=== PATIENT | male | born 1960 | race Two or more races ===

== ENCOUNTER 2018-09-17 11:51 | Emergency (ER) | payer OTHER ==
--- NOTE | 2018-09-17 12:10 | ER Document Report ---
ED Medical Screen (RME) - General Chief Complaint: S/S of Possible Stroke Stated Complaint: WEAKNESS Time Seen by Provider: 09/17/18 12:06 Mode of Arrival: Ambulatory Information source: Patient Notes: Patient presents emergency department that at approximately 10:00 AM this morning the patient began feeling like he was dizzy and anxious. Reported that he felt his left arm felt some electrical pulse and his chest was little tight. 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 Patient was working outside when he was walking to take a break. Patient is Maori- speaking. Coworker at his side reports he drank some Gatorade and ate a Snickers at around 1115. Stroke protocol initiated at [facility]. Patient is alert and oriented and answering all questions appropriately through his coworker. Adore chavarria I have greeted and performed a rapid initial assessment of this patient. A c omprehensive ED assessment and evaluation of the patient, analysis of test results and completion of the medical decision making process will be conducted by additional ED providers. Dictation of this chart was performed using voice recognition software; therefore, there may be some unintended grammatical errors. TRAVEL OUTSIDE OF THE [place] IN LAST 30 DAYS: No - Related Data Allergies/Adverse Reactions: No Known Allergies Allergy (Unverified 09/17/18 11:54) Physical Exam - Vital signs Vitals: Pulse Resp BP Pulse Ox 86 18 155/102 H 99 09/17/18 12:27 09/17/18 12:27 09/17/18 12:27 09/17/18 12:27 Course - Vital Signs Vital signs: Temp Pulse Resp BP Pulse Ox 85 18 139/94 H 98 09/17/18 15:15 09/17/18 16:52 09/17/18 16:52 09/17/18 16:52 - Laboratory Result Diagrams: 09/17/18 12:09 09/17/18 12:09 Laboratory results interpreted by me: 09/17/18 12:09 Sodium 136.6 L Chloride 97 L Glucose 439 H* Total Bilirubin 1.4 H Doctor's Discharge - Discharge Clinical Impression: TIA (transient ischemic attack), Hyperglycemia Condition: Stable Disposition: HOME, SELF-CARE Additional Instructions: Transient Ischemic Attack You have been diagnosed as having a transient ischemic attack (TIA). This is caused when an artery to the brain has been temporarily blocked. It can result in visual changes, difficulty with speech, and weakness or numbness -- usually limited to one side of the body. TIA symptoms usually resolve within an hour, but a TIA is serious, as it may be a warning sign of an impending stroke. To prevent further episodes, you may be placed on medication to reduce the possibility that your platelets will aggregate and form blood clots in the arteries that supply the brain. Usually, this includes aspirin and sometimes other platelet inhibitors. Further evaluation is often necessary to make an exact diagnosis as to where these blood clots are originating, and if anything else needs to be done to correct the problem. Call the physician or go to the emergency room if episodes occur with increasing frequency. If symptoms occur that don't go away within a few minutes, call 911. Aspirin Aspirin has been shown to have a beneficial effect on blood circulation by reducing the clotting effect of platelets in the blood. These beneficial effects can be achieved by taking just a single baby (62.5 mg) aspirin a day. It is recommended that any person over the age of forty take a single baby aspirin every day for heart and brain circulation, unless you are allergic to aspirin or have some significant bleeding disorder. It is strongly recommended that people who have proven cardiac or blood circulation disturbances should take a baby aspirin every day. HYPERGLYCEMIA (HIGH BLOOD SUGAR): You have an abnormally high blood sugar. Not all high blood sugar requires long-term treatment. High blood sugar can be due to medications, , or the stress of illness. (These cases are "borderline diabetes.") If the doctor feels your high blood sugar might resolve with time, you may not require treatment now. It's very important that you follow through, to see if the blood sugar returns to normal levels. Uncontrolled high blood sugar leads to early heart disease, strokes, nerve damage, eye damage, and kidney damage. Call the physician if there is faintness, excess sleepiness, or very rapid breathing. NORMAL EXAM AND WORKUP: At this time, except for your elevated blood sugar, your examination and workup show no significant abnormality. No significant abnormal physical findings were noted. All laboratory, EKG, and imaging (x-ray, CT scans, ultrasound) studies that were ordered show no significant abnormality. Although your examination and all studies that were ordered showed no significant abnormal finding, there are no examinations and no studies that are 100% accurate. There is always the possibility that some abnormality could exist and not be detected with physical examination or within the limits and capabilities of laboratory and other studies. You should return or follow up as you were instructed on your visit today for further evaluation if your symptoms do not resolve. DIABETES: You have an abnormally high blood sugar, suspicious for diabetes. Not all high blood sugar requires long-term treatment. High blood sugar can be due to medications, , or the stress of illness. (These cases are "borderline diabetes.") If the doctor feels your high blood sugar might get better with time, you may not require treatment now. It's very important that you follow through. Uncontrolled high blood sugar leads to early heart disease, strokes, nerve damage, eye damage, and kidney damage. All diabetics should follow a diet designed to control the blood sugar. Overweight diabetics should exercise regularly and lose weight. If this is not sufficient to control the blood sugar, pills or insulin shots are necessary. Younger people who develop diabetes almost always require insulin daily. Home testing of blood sugars or urine sugar is required. Diabetic teaching is available to help you figure insulin doses and monitor the blood sugar. Call the physician if there is faintness, excess sleepiness, or very rapid breathing. If hypoglycemia (LOW blood sugar) develops, symptoms are shakiness, weakness, sweating, and confusion. In this case, you should eat or drink something with sugar at once. Glucophage (Metformin hydrochloride) Glucophage is used to treat diabetes. It helps insulin move sugar from your blood stream into your cells. It also slows production of new blood sugar. Glucophage can be combined with another type of diabetes pill or with insulin injections. Glucophage should NOT be used by patients, true insulin-dependent (juvenile) diabetics, or those prone to acidosis (severe kidney disease, alcoholism, severe heart failure). You MUST NOT receive iodine-containing x-ray dye while taking Glucophage. The medicine must be stopped 2 days before the test. Be certain your doctor is aware you are taking Glucophage before undergoing IVP, angiograms, or other x- rays that require IV injection of dye. Glucophage commonly causes decreased appetite. Some patients may have nausea, vomiting, or diarrhea. If the side effects are severe, call your doctor. Glucophage will not cause hypoglycemia (low blood sugar) when used alone. Some patients using diabetes pills or insulin may experience symptoms of hypoglycemia (flushing, sweats, racing heart, lightheadedness). Eat or drink something sweet. Contact your doctor for further instructions. You may need to reduce the dose of insulin or of the other diabetes pill. FOLLOW-UP CARE: If you have been referred to a physician for follow-up care, call the physicians office for an appointment as you were instructed or within the next two days. If you experience worsening or a significant change in your symptoms, notify the physician immediately or return to the Emergency Department at any time for re-evaluation. You should see a primary care physician in the next 5 to 7 days to recheck your blood sugar and determine if you need to increase her dosage or increase your type of pills to control your blood sugar properly. Prescriptions: Metformin HCl [Glucophage 500 mg Tablet] 500 mg PO BID #20 tablet
--- NOTE | 2018-09-17 12:25 | RADIOLOGY REPORT (SQ) ---
EXAM DESCRIPTION: CHEST SINGLE VIEW COMPLETED DATE/TIME: 09/17/2018 12:12 pm REASON FOR STUDY: bed 18 cp COMPARISON: None. EXAM PARAMETERS: NUMBER OF VIEWS: One view. TECHNIQUE: Single frontal radiographic view of the chest acquired. RADIATION DOSE: NA LIMITATIONS: None. FINDINGS: LUNGS AND PLEURA: No opacities, masses or pneumothorax. No pleural effusion. MEDIASTINUM AND HILAR STRUCTURES: No masses. Contour normal. HEART AND VASCULAR STRUCTURES: Heart normal in size. Normal vasculature. BONES: No acute findings. HARDWARE: None in the chest. OTHER: No other significant finding. IMPRESSION: NO ACUTE RADIOGRAPHIC FINDING IN THE CHEST. TECHNICAL DOCUMENTATION: JOB ID: [id number] [employer]- All Rights Reserved Reading location - IP/workstation name: [email or web address]
[2018-09-17 12:26] LABS: ABSOLUTE EOSINOPHILS # (AUTO) 0.1 10^3/uL (0.0-0.6); ABSOLUTE LYMPHOCYTES (AUTO) 0.9 10^3/uL (0.5-4.7); ABSOLUTE MONOCYTES (AUTO) 0.4 10^3/uL (0.1-1.4); ABSOLUTE NEUT (AUTO) 3.2 10^3/uL (1.7-8.2); BASOPHILS % (AUTO) 0.6 % (0-2); EOSINOPHILS % (AUTO) 2.6 % (0-6); HEMATOCRIT 45.4 % (37.9-51.0); HEMOGLOBIN 15.2 g/dL (13.5-17.0); LYMPHOCYTES % (AUTO) 20.2 % (13-45); MEAN CORPUSCULAR HEMOGLOBIN 32.1 pg (27.0-33.4); MEAN CORPUSCULAR HGB CONC 33.3 g/dL (32.0-36.0); MEAN CORPUSCULAR VOLUME 96 fl (80-97); MONOCYTES % (AUTO) 8.6 % (3-13); PLATELET COUNT 155 10^3/uL (150-450); RED BLOOD COUNT 4.71 10^6/uL (4.35-5.55); TOTAL CELLS COUNTED % (AUTO) 100 %; WHITE BLOOD COUNT 4.7 10^3/uL (4.0-10.5)
--- NOTE | 2018-09-17 12:28 | RADIOLOGY REPORT (SQ) ---
EXAM DESCRIPTION: CT HEAD WITHOUT COMPLETED DATE/TIME: 09/17/2018 12:02 pm REASON FOR STUDY: left sided weakness COMPARISON: None. TECHNIQUE: Axial images acquired through the brain without intravenous contrast. Images reviewed wi th bone, brain and subdural windows. Additional sagittal and coronal reconstructions were generated. Images stored on PACS. All CT scanners at this facility use dose modulation, iterative reconstruction, and/or weight based d osing when appropriate to reduce radiation dose to as low as reasonably achievable (ALARA). [facility]: Dose Right [facility]: CareDose [facility]: Dose Right [facility]: Teradose 4D [facility]: [employer] RADIATION DOSE: mGy. LIMITATIONS: None. FINDINGS: VENTRICLES: Normal size and contour. CEREBRUM: No masses. No hemorrhage. No midline shift. No evidence for acute infarction. Normal gra y/white matter differentiation. No areas of low density in the white matter. CEREBELLUM: No masses. No hemorrhage. No alteration of density. No evidence for acute infarction. EXTRAAXIAL SPACES: No fluid collections. No masses. ORBITS AND GLOBE: No intra- or extraconal masses. Normal contour of globe without masses. CALVARIUM: No fracture. PARANASAL SINUSES: No fluid or mucosal thickening. SOFT TISSUES: No mass or hematoma. OTHER: No other significant finding. IMPRESSION: NORMAL BRAIN CT WITHOUT CONTRAST. EVIDENCE OF ACUTE STROKE: NO. COMMENT: Quality ID # [id number]: Final reports with documentation of one or more dose reduction techniques (e.g., Automated exposure control, adjustment of the mA and/or kV according to patient size, use of iterative reconstruction technique) TECHNICAL DOCUMENTATION: JOB ID: [id number] [employer]- All Rights Reserved Reading location - IP/workstation name: [email or web address]
[2018-09-17 12:45] LABS: ALANINE AMINOTRANSFERASE 24 U/L (21-72); ALBUMIN 4.2 g/dL (3.5-5.0); ALKALINE PHOSPHATASE 65 U/L (38-126); ANION GAP 12 (5-19); ASPARTATE AMINO TRANSFERASE 20 U/L (17-59); BILIRUBIN,DIRECT 0.2 mg/dL (0.0-0.4); BILIRUBIN,TOTAL 1.4 mg/dL (0.2-1.3); BLOOD UREA NITROGEN 14 mg/dL (7-20); CALCIUM 9.5 mg/dL (8.4-10.2); CARBON DIOXIDE 28 mmol/L (22-30); CHLORIDE 97 mmol/L (98-107); CREATINE KINASE 92 U/L (55-170); SODIUM 136.6 mmol/L (137-145)
[2018-09-17 12:53] LABS: GLUCOSE 439 mg/dL (75-110)
[2018-09-17 12:57] LABS: CREATINE KINASE MB 2.93 ng/mL (<4.55)
[2018-09-17 12:58] LABS: TROPONIN I < 0.012 ng/mL
--- NOTE | 2018-09-17 15:36 | RADIOLOGY REPORT (SQ) ---
EXAM DESCRIPTION: MRI HEAD WITHOUT COMPLETED DATE/TIME: 09/17/2018 3:19 pm REASON FOR STUDY: Numbness left arm and hand and leg COMPARISON: None. TECHNIQUE: Multiplanar imaging includes non-contrasted T1, T2, FLAIR, and diffusion with ADC map seq uences. Images stored on PACS. LIMITATIONS: None. FINDINGS: ANATOMY: No anomalies. Normal vascular flow voids. Pituitary fossa normal. CSF SPACES: Normal in size and contour. No hemorrhage. CEREBRUM: Sulci and gyri normal in size and contour. Normal white matter signal on FLAIR imaging. No evidence of hemorrhage, mass, or extraaxial fluid collection. POSTERIOR FOSSA: No signal alteration. No hemorrhage. No edema, masses or mass effect. Internal kalli tory canals, cerebello-pontine angles, mastoids normal. DIFFUSION IMAGING: Negative for acute or sub-acute infarction. ORBITS: No masses. Globes normal. PARANASAL SINUSES: No fluid levels. Mucosa normal. OTHER: No other significant finding. IMPRESSION: NORMAL MRI OF THE BRAIN WITHOUT INTRAVENOUS GADOLINIUM CONTRAST. EVIDENCE OF ACUTE STROKE: NO. TECHNICAL DOCUMENTATION: JOB ID: [id number]- All Rights Reserved Reading location - IP/workstation name: [email or web address]
--- NOTE | 2018-09-17 15:41 | RADIOLOGY REPORT (SQ) ---
EXAM DESCRIPTION: MRI CERVICAL SPINE WITHOUT COMPLETED DATE/TIME: 09/17/2018 3:20 pm REASON FOR STUDY: Numbness of left arm and hand. COMPARISON: None. TECHNIQUE: Sagittal and Axial imaging includes T1, T2, STIR and gradient echo sequences. LIMITATIONS: None. FINDINGS: ALIGNMENT: Normal. VERTEBRAE: Intact. BONE MARROW: Normal. No marrow replacement or reactive changes. DISCS: Normal. No significant abnormal signal or loss of height. HARDWARE: None in the spine. CORD AND BASE OF BRAIN: Normal in size and signal intensity. SOFT TISSUES: No soft tissue masses. C1-C2: No significant spinal stenosis. C2-C3: No significant spinal stenosis or exit foraminal stenosis. C3-C4: No significant spinal stenosis or exit foraminal stenosis. C4-C5: No significant spinal stenosis or exit foraminal stenosis. C5-C6: Shallow left paracentral disc/osteophyte complex that narrows the anterior CSF space and may m inimally deform the anterior spinal cord. There is no significant foraminal stenosis. C6-C7: Shallow midline disc/ osteophyte complex that narrows the anterior CSF space but does not defo rm the spinal cord. There is no foraminal stenosis. C7-T1: No significant spinal stenosis or exit foraminal stenosis. UPPER THORACIC: Incompletely imaged. No significant spinal stenosis or exit foraminal stenosis. OTHER: No other significant finding. IMPRESSION: The study is normal except for left paracentral disc/ osteophyte complex at C5-6 as desc ribed. A minimal midline disc/ osteophyte complex at C6-7 does not appear particularly significant. TECHNICAL DOCUMENTATION: JOB ID: [id number] [employer]- All Rights Reserved Reading location - IP/workstation name: [email or web address]
[2018-09-17 16:53] VITALS: BP 139/94
--- NOTE | 2018-09-17 17:08 | ER Document Report ---
ED General - General Chief Complaint: S/S of Possible Stroke Stated Complaint: WEAKNESS Time Seen by Provider: 09/17/18 12:06 Mode of Arrival: Ambulatory Notes: Patient was at work today about 10 AM when he experienced numbness in his left arm. It include the entire arm and probably worse in the hand. 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 He did feel some tightness in the left back of his head, but no neck pains. Coworkers say that he was not able to walk on his left leg. He seemed confused and did not know where he was at that time. Where he was working was hot, although there was ample opportunity to get out of the heat and into a cooler place and patient does not think he got overheated. Patient is right-hand dominant. Patient is in good health. Does not take any prescription medications for any medical disorder. TRAVEL OUTSIDE OF THE [place] IN LAST 30 DAYS: No - Related Data Allergies/Adverse Reactions: No Known Allergies Allergy (Unverified 09/17/18 11:54) Past Medical History - General Information source: Patient - Social History Smoking Status: Unknown if Ever Smoked Family History: Reviewed & Not Pertinent, DM Patient has suicidal ideation: No Patient has homicidal ideation: No - Past Medical History Cardiac Medical History: Denies: Hx Atrial Fibrillation, Hx Coronary Artery Disease, Hx Hypercholesterolemia, Hx Hypertension Neurological Medical History: Denies: Hx Cerebrovascular Accident, Hx Seizures Endocrine Medical History: Denies: Hx Diabetes Mellitus Type 1, Hx Diabetes Mellitus Type 2 Review of Systems - Review of Systems Notes: REVIEW OF SYSTEMS: CONSTITUTIONAL : Denies fever. EENT: Denies eye, ear, nose or mouth or throat pain or other symptoms. CARDIOVASCULAR: Denies chest pain. Does not indicate having any pain in his chest at any time. Does not point to his chest as the location of any pain. RESPIRATORY: Denies cough, chest congestion, or shortness of breath. GASTROINTESTINAL: Denies abdominal pain or nausea, vomiting, or diarrhea. GENITOURINARY: Denies difficulty or painful urinating, urinary frequency, blood in urine. MUSCULOSKELETAL: Denies back or neck pain. Denies joint pain or swelling. SKIN: Denies rash or skin lesions. NEUROLOGICAL: Denies LOC or altered mental status. See HPI. Denies headache. ALL OTHER SYSTEMS REVIEWED AND NEGATIVE. Physical Exam - Vital signs Vitals: Pulse Resp BP Pulse Ox 86 18 155/102 H 99 09/17/18 12:27 09/17/18 12:27 09/17/18 12:27 09/17/18 12:27 Interpretation: Normal Notes: PHYSICAL EXAMINATION: GENERAL: Well-appearing, in no acute distress. Vital signs are all essentially normal. HEAD: Atraumatic, normocephalic. EYES: Pupils equal round and reactive to light, extraocular movements intact. ENT: oropharynx clear without exudates. Moist mucous membranes. NECK: Normal range of motion, supple. LUNGS: Breath sounds clear and equal bilaterally. HEART: Regular rate and rhythm without murmurs. ABDOMEN: Soft, nontender. No guarding or rebound. No masses. BACK: No tenderness throughout entire back. EXTREMITIES: Normal range of motion without pain. NEUROLOGICAL: Normal speech, normal gait. Normal sensory, motor, and reflex exams. 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 Awake, alert, and oriented x3. Cranial nerves normal. No facial asymmetry. No drooping of either side. No slurring of speech. PSYCH: Normal mood, normal affect. SKIN: Warm, dry, no rashes. Course - Re-evaluation Re-evalutation: 09/17/18 19:19 Patient's symptoms gradually dissipated until he had no more symptoms. He was able to walk normally about the emergency department without any assistance. His CT scan as well as his MRI of his brain were both normal. No evidence of stroke. I am not sure what is causing patient's symptoms. I believe he probably had a TIA as that is the most consistent with the symptoms he is presented with. I do not think he has had a cardiac event. And, then, there is a questionable role that elevated blood sugar played in his symptoms. I can only say the patient is significantly improved from his presentation and without complaints at the time of his discharge. - Vital Signs Vital signs: Temp Pulse Resp BP Pulse Ox 85 18 139/94 H 98 09/17/18 15:15 09/17/18 16:52 09/17/18 16:52 09/17/18 16:52 - Laboratory Result Diagrams: 09/17/18 12:09 09/17/18 12:09 Laboratory results interpreted by me: 09/17/18 12:09 Sodium 136.6 L Chloride 97 L Glucose 439 H* Total Bilirubin 1.4 H - EKG Interpretation by Me EKG shows normal: Sinus rhythm Rate: Normal Rhythm: NSR Additional EKG results interpreted by me: 09/17/18 19:22 EKG is normal. No ST changes. No ST elevation. Discharge - Discharge Clinical Impression: TIA (transient ischemic attack), Hyperglycemia Condition: Stable Disposition: HOME, SELF-CARE Additional Instructions: Transient Ischemic Attack You have been diagnosed as having a transient ischemic attack (TIA). This is caused when an artery to the brain has been temporarily blocked. It can result in visual changes, difficulty with speech, and weakness or numbness -- usually limited to one side of the body. TIA symptoms usually resolve within an hour, but a TIA is serious, as it may be a warning sign of an impending stroke. To prevent further episodes, you may be placed on medication to reduce the possibility that your platelets will aggregate and form blood clots in the arteries that supply the brain. Usually, this includes aspirin and sometimes other platelet inhibitors. Further evaluation is often necessary to make an exact diagnosis as to where these blood clots are originating, and if anything else needs to be done to correct the problem. Call the physician or go to the emergency room if episodes occur with increasing frequency. If symptoms occur that don't go away within a few minutes, call 911. Aspirin Aspirin has been shown to have a beneficial effect on blood circulation by reducing the clotting effect of platelets in the blood. These beneficial effe cts can be achieved by taking just a single baby (62.5 mg) aspirin a day. It is recommended that any person over the age of forty take a single baby aspirin every day for heart and brain circulation, unless you are allergic to aspirin or have some significant bleeding disorder. It is strongly recommended that people who have proven cardiac or blood circulation disturbances should take a baby asp irin every day. HYPERGLYCEMIA (HIGH BLOOD SUGAR): You have an abnormally high blood sugar. Not all high blood sugar requires long-term treatment. High blood sugar can be due to medications, , or the stress of illness. (These cases are "borderline diabetes.") If the doctor feels your high blood sugar might resolve with time, you may not require treatment now. It's very important that you follow through, to see if the blood sugar returns to normal levels. Uncontrolled high blood sugar leads to early heart disease, strokes, nerve damage, eye damage, and kidney damage. Call the physician if there is faintness, excess sleepiness, or very rapid breathing. NORMAL EXAM AND WORKUP: At this time, except for your elevated blood sugar, your examination and workup show no significant abnormality. No significant abnormal physical findings were noted. All laboratory, EKG, and imaging (x-ray, CT scans, ultrasound) studies that were ordered show no significant abnormality. Although your examination and all studies that were ordered showed no signi ficant abnormal finding, there are no examinations and no studies that are 100% accurate. There is always the possibility that some abnormality could exist and not be detected with physical examination or within the limits and capabilities of laboratory and other studies. You should return or follow up as you were instructed on your visit today for further evaluation if your symptoms do not resolve. DIABETES: You have an abnormally high blood sugar, suspicious for diabetes. Not all high blood sugar requires long-term treatment. High blood sugar can be due to medications, , or the stress of illness. (These cases are "borderline diabetes.") If the doctor feels your high blood sugar might get better with time, you may not require treatment now. It's very important that you follow through. Uncontrolled high blood sugar leads to early heart disease, strokes, nerve damage, eye damage, and kidney damage. All diabetics should follow a diet designed to control the blood sugar. Overweight diabetics should exercise regularly and lose weight. If this is not sufficient to control the blood sugar, pills or insulin shots are necessary. Younger people who develop diabetes almost always require insulin daily. Home testing of blood sugars or urine sugar is required. Diabetic teaching is available to help you figure insulin doses and monitor the blood sugar. Call the physician if there is faintness, excess sleepiness, or very rapid breathing. If hypoglycemia (LOW blood sugar) develops, symptoms are shakiness, weakness, sweating, and confusion. In this case, you should eat or drink something with sugar at once. Glucophage (Metformin hydrochloride) Glucophage is used to treat diabetes. It helps insulin move sugar from your blood stream into your cells. It also slows production of new blood sugar. Glucophage can be combined with another type of diabetes pill or with insulin injections. Glucophage should NOT be used by patients, true insulin-dependent (juvenile) diabetics, or those prone to acidosis (severe kidney disease, alcoholism, severe heart failure). You MUST NOT receive iodine-containing x-ray dye while taking Glucophage. The medicine must be stopped 2 days before the test. Be certain your doctor is aware you are taking Glucophage before undergoing IVP, angiograms, or other x- rays that require IV injection of dye. Glucophage commonly causes decreased appetite. Some patients may have nausea, vomiting, or diarrhea. If the side effects are severe, call your doctor. Glucophage will not cause hypoglycemia (low blood sugar) when used alone. Some patients using diabetes pills or insulin may experience symptoms of hypoglycemia (flushing, sweats, racing heart, lightheadedness). Eat or drink something sweet. Contact your doctor for further instructions. You may need to reduce the dose of insulin or of the other diabetes pill. FOLLOW-UP CARE: If you have been referred to a physician for follow-up care, call the physicians office for an appointment as you were instructed or within the next two days. If you experience worsening or a significant change in your symptoms, notify the physician immediately or return to the Emergency Department at any time for re-evaluation. You should see a primary care physician in the next 5 to 7 days to recheck your blood sugar and determine if you need to increase her dosage or increase your type of pills to control your blood sugar properly. Prescriptions: Metformin HCl [Glucophage 500 mg Tablet] 500 mg PO BID #20 tablet
--- NOTE | 2018-09-17 20:07 | EKG REPORT ---
SEVERITY:- BORDERLINE ECG - SINUS RHYTHM LEFT AXIS DEVIATION BORDERLINE R WAVE PROGRESSION, ANTERIOR LEADS : Confirmed by: Juliana Lao MD 17-Sep-2018 20:07:24
== END 2018-09-17 17:25 | disposition home or self-care (01) ==
LOC: ER 11:51
DX: G45.9 Transient cerebral ischemic attack, unspecified (principal); R20.0 Anesthesia of skin; R73.9 Hyperglycemia, unspecified
CPT/HCPCS: 36415; 70450; 70551; 71045; 72141; 80053; 82550; 82553; 84484; 85025; 93005; 93010; 99285